=== PATIENT | male | born 1980 | race Two or more races ===

== ENCOUNTER → 2025-01-06 | Emergency (ER) | payer OTHER ==
[~2025-01-06] VITALS: Ht 162.6 cm; Wt 79.4 kg
[~2025-01-06] MED LIST: CLEOCIN HCL300 MG PO; CLINDAMYCIN PHOSPHATE 150 MG/ML (300mg) IM ONE; CLINDAMYCIN PHOSPHATE 150 MG/ML (300mg) ONE; INTESTINEX680 M1 PO
[2025-01-06 12:36] LABS: HEMATOCRIT 48.9 % (39.0-48.0); HEMOGLOBIN 16.4 g/dL (13-16.00); MEAN CELL VOLUME 92.4 fL (80.0-100.00); MEAN CORPUSCULAR HGB CONC 33.5 g/dl (32.0-36.0); PLATELET COUNT 237 K/uL (150-450); RED BLOOD COUNT 5.29 M/uL (4.00-6.00); RED CELL DISTRIBUTION WIDTH 13.6 % (11.5-14.5)
[2025-01-06 12:41] LABS: ERYTHROCYTE SEDIMENTATION RATE 4 mm/hr
== END | disposition home or self-care (01) ==
LOC: ER 09:21
PROVIDERS: Preventive Medicine Public Health & General Preventive Medicine
DX: L08.9 Local infection of the skin and subcutaneous tissue, unspecified (principal); S60.861A Insect bite (nonvenomous) of right wrist, initial encounter; W57.XXXA Bitten or stung by nonvenomous insect and other nonvenomous arthropods, initial encounter; Y93.89 Activity, other specified; Y92.89 Other specified places as the place of occurrence of the external cause; Y99.9 Unspecified external cause status; Z88.0 Allergy status to penicillin; Z87.09 Personal history of other diseases of the respiratory system